=== PATIENT | female | born 1995 | race African-American/Black ===

== ENCOUNTER 2016-07-11 10:48 | Emergency (ER) | payer OTHER ==
[2016-07-11 10:59] VITALS: TEMP 98; BMI 23.6
--- NOTE | 2016-07-11 11:47 | PDOC ---
History of Present Illness - General Chief Complaint: Syncope/Near Syncope Stated Complaint: SYNCOPE Time Seen by Provider: 07/11/16 11:20 History Source: Patient Exam Limitations: No Limitations - History of Present Illness Initial Comments: 07/11/16 11:47 21 y/o female with hx of gestastional anemia s/p syncopal episode while standing at work. Patient states was fixing something above her when she started to feel dizzy and next thing she no she woke up with bystanders around her. Patient states witnesses said she did not hit her head and caught then brought to the ground. Patient states did not eat this morning which she normally does eat around 9 and 10 but since she was busy she forgot to. Patient denies recent illness, recent travel, or recent menses. patient has no other complaints at this time including dizziness, headache, or weakness. Presenting Symptoms: Dizziness, Syncope Timing/Duration: reports: resolved prior to arrival Severity/Quality: reports: moderate Associated Symptoms: Yes: Dizziness, Syncope Past History - Past Medical History Allergies/Adverse Reactions: Allergies Allergy/AdvReac Type Severity Reaction Status Date / Time No Known Allergies Allergy Verified 07/11/16 10:54 Home Medications: Ambulatory Orders NK [No Known Home Medication] 07/11/16 Anemia: Yes Cardiac Disorders: Yes (MURMUR) - Psycho/Social/Smoking Cessation Hx Suicidal Ideation: No Smoking History: Never smoked Patient Lives Alone: No Lives with/in: parents Review of Systems - Review of Systems Able to Perform ROS?: Yes Constitutional: No: Symptoms Reported HEENTM: No: Symptoms Reported Respiratory: No: Symptoms reported Cardiac (ROS): Yes: Syncope ABD/GI: No: Symptoms Reported : No: Symptoms Reported Musculoskeletal: No: Symptoms Reported Integumentary: No: Symptoms Reported Neurological: Yes: Dizziness Endocrine: No: Symptoms Reported Hematologic/Lymphatic: No: Symptoms Reported *Physical Exam - Vital Signs Last Vital Signs Temp Pulse Resp BP Pulse Ox 98 F 65 19 121/69 100 07/11/16 10:55 07/11/16 10:55 07/11/16 10:55 07/11/16 10:55 07/11/16 10:55 - Physical Exam General Appearance: Yes: Nourished, Appropriately Dressed. No: Apparent Distress HEENT: positive: ANNIKA (pt with noted hemmorhagic hordeolum to left lower eyelid) . negative: Pale Conjunctivae Neck: positive: Supple Respiratory/Chest: positive: Lungs Clear, Normal Breath Sounds. negative: Respiratory Distress, Accessory Muscle Use Cardiovascular: positive: Regular Rhythm, Regular Rate. negative: Murmur Gastrointestinal/Abdominal: positive: Soft. negative: Tenderness Extremity: positive: Normal Capillary Refill. negative: Pedal Edema Neurologic: positive: Normal Mood/Affect, Motor Strength 5/5 (ambulatory ) ED Treatment Course - LABORATORY CBC & Chemistry Diagram: 07/11/16 11:39 07/11/16 11:39 - ADDITIONAL ORDERS Additional order review: Laboratory Results 07/11/16 07/11/16 11:39 11:39 Sodium 140 Potassium 3.9 Chloride 103 Carbon Dioxide 28 Anion Gap 9 BUN 13 Creatinine 0.7 Creat Clearance w eGFR > 60 Random Glucose 85 Calcium 8.7 Total Bilirubin 0.4 AST 15 ALT 16 Alkaline Phosphatase 73 Total Protein 7.1 Albumin 3.8 Serum , Qual Negative 07/11/16 11:39 RBC 4.38 MCV 77.3 L MCHC 34.2 RDW 17.7 H MPV 8.8 Neutrophils % 73.5 Lymphocytes % 16.4 Monocytes % 8.8 Eosinophils % 0.9 Basophils % 0.4 Medical Decision Making - Medical Decision Making 07/11/16 11:52 Patient status post syncopal episode without head injury. Patient had ABG on the field of 102. Patient ordered for orthostatics, lab work, EKG and serum . 07/11/16 12:47 Patient was not found to be orthostatic. Patient remains asymptomatic. Patient given food tray and discharged home *DC/Admit/Observation/Transfer Diagnosis at time of Disposition: Syncope Qualifiers: Syncope type: unspecified Qualified Code(s): R55 - Syncope and collapse - Discharge Dispostion Disposition: HOME Condition at time of disposition: Good - Patient Instructions Printed Discharge Instructions: DI for Syncope in Adults (Fainting) Additional Instructions: Please drink plenty of fluids and eat well-balanced meals throughout the day. Please follow-up with your PCP and/or return to ED if symptoms worsen.
[2016-07-11 11:48] LABS: BASOPHIL 0.4 % (0-2.0); EOSINOPHIL 0.9 % (0-4.5); MCH 26.5 pg (25.7-33.7); MCHC 34.2 g/dl (32.0-36.0); MEAN CELL VOLUME 77.3 fl (80-96); MEAN PLT VOLUME 8.8 fl (7.5-11.1); NEUTROPHILS 73.5 % (42.8-82.8); PLATELET COUNT 185 K/MM3 (134-434); RDW 17.7 % (11.6-15.6); WHITE BLOOD COUNT 7.1 K/mm3 (4.0-10.0)
[2016-07-11 12:05] LABS: ALBUMIN 3.8 g/dl (3.4-5.0); ALK PHOS 73 U/L (45-117); ANION GAP 9 (8-16); BILIRUBIN,TOTAL 0.4 mg/dL (0.2-1.0); CALCIUM 8.7 mg/dL (8.5-10.1); CO2 28 mmol/L (21-32); CREATININE 0.7 mg/dL (0.55-1.02); GLUCOSE,RANDOM 85 mg/dL (74-106); SGOT/AST 15 U/L (15-37); SGPT/ALT 16 U/L (12-78); TOT PROT 7.1 g/dl (6.4-8.2)
[2016-07-11 12:57] VITALS: BP 102/53; PULSE 73
--- NOTE | 2016-07-11 15:03 | EKG ---
Test Reason : Blood Pressure : / mmHG Vent. Rate : 068 BPM Atrial Rate : 068 BPM P-R Int : 188 ms QRS Dur : 080 ms QT Int : 378 ms P-R-T Axes : 057 040 036 degrees QTc Int : 401 ms NORMAL SINUS RHYTHM WITH SINUS ARRHYTHMIA POSSIBLE LEFT ATRIAL ENLARGEMENT EARLY REPOLARIZATION BORDERLINE ECG NO PREVIOUS ECGS AVAILABLE Confirmed by GWEN WOOTEN MD ([id number]) on 07/11/2016 3:03:20 PM Referred By: Confirmed By:GWEN WOOTEN MD
== END 2016-07-11 12:58 | disposition home or self-care (01) ==
LOC: JER 10:48
DX: R55 Syncope and collapse (principal)
CPT/HCPCS: 36415; 80053; 84703; 85025; 93005; 93010; 99283-25